=== PATIENT | male | born 1985 | race Caucasian/White ===

== ENCOUNTER → 2016-07-20 | Outpatient (CLI) | payer OTHER ==
[~2016-07-20] MED LIST: NO ROUTINE MEDS; PHEN50TA PO
== END ==
LOC: LAB 12:23
PROVIDERS: ATTEND Nurse Practitioner Family
DX: Z77.21 Contact with and (suspected) exposure to potentially hazardous body fluids (principal); Z51.81 Encounter for therapeutic drug level monitoring
CPT/HCPCS: 36415; 80185; 86703; 86803; 87340; 87522